=== PATIENT | female | born 1990 | race Two or more races ===

== ENCOUNTER → 2020-05-02 07:34 | Outpatient (BNVA) | payer OTHER, SELFPAY | PROVIDERS: PCP Internal Medicine | DX: Z13.89 Encounter for screening for other disorder (principal) | CPT/HCPCS: 99213 ==

== ENCOUNTER 2020-07-17 23:27 | Outpatient (REF) | payer OTHER, SELFPAY ==
[2020-07-18 00:02] LABS: IDNOW Serial# 9DD0AD1C
[2020-07-18 00:03] LABS: COVID-19 Test Negative (Negative)
== END 2020-07-17 23:28 | disposition home or self-care (01) ==
LOC: HO.LAB 23:27
PROVIDERS: Visit Provider Internal Medicine
DX: Z20.828 Contact with and (suspected) exposure to other viral communicable diseases (principal)
CPT/HCPCS: 36415; 87635

== ENCOUNTER 2021-07-21 15:13 | Emergency (ER) | payer OTHER, SELFPAY ==
[2021-07-21 16:36] VITALS: BP 127/75; PULSE 87; RESP 18; TEMP 35.9; O2SAT 100; BMI 37.8
[2021-07-21 19:57] LABS: COVID-19 Test Negative (Negative)
--- NOTE | 2021-07-21 22:07 | ED_ITS ---
HPI - General Adult General Chief complaint: General Medical Stated complaint: vomiting headache clogged ears Time Seen by Provider: 07/21/21 21:28 Source: patient Mode of arrival: ambulatory History of Present Illness HPI narrative: 31-year-old female without significant past history other than recent resolution of COVID-19 infection (she is unvaccinated), diagnosed on 07/06 and tested COVID-19 -5 days ago. Patient now presents with complaints of fever, left ear pain, rhinosinusitis symptoms such as pain and congestion as well as nausea and vomiting. Related Data Previous Rx's Medication Instructions Recorded amoxicillin 875 mg-potassium 1 tab PO Q12H 10 Days #20 tab 07/21/21 clavulanate 125 mg tablet (Augmentin) ondansetron 4 mg disintegrating 4 mg PO Q6H PRN #7 tab 07/21/21 tablet Allergies Allergy/AdvReac Type Severity Reaction Status Date / Time No Known Allergies Allergy Unverified 03/27/20 19:39 [No Known Allergies*] Review of Systems Review of Systems: Pertinent positives and negatives as stated in HPI 10 point review of systems is otherwise negative. [facility] Past Medical History Attestation statement: The following information was validated with the patient. Source: nursing notes reviewed Social History Social History Advance Directives: No Advance Directives Information Provided: Yes Patient : No Physical Exam Vital Signs: Vital Signs: Last Vital Signs Temp 96.6 F L 07/21/21 16:36 Pulse 87 07/21/21 16:36 Resp 18 07/21/21 16:36 BP 127/75 07/21/21 16:36 Pulse Ox 100 07/21/21 16:36 BMI result Body Mass Index 37.8 VITAL SIGNS: Reviewed. GENERAL: Well developed, well nourished, in no acute distress. HEAD: Normocephalic/atraumatic EYES: PERRLA, EOMI EARS: Ext canals without abnormality, LEFT:TM with noted purulence and mild bulging, RIGHT: TM non-bulging and non-erythematous NOSE: Bilateral nasal congestion boggy turbinates, pain on palpation over left maximal OROPHARYNX: no oral lesions noted, posterior pharynx clear and non-erythematous without noted tonsillar enlargement/erythema/exudates NECK: Supple, no adenopathy LUNGS: Normal breath sounds, no tachypnea. No adventitious sounds or accessory muscle use. SpO2<100> CARDIOVASCULAR: Regular rate and rhythm without noted murmurs ABDOMEN: Soft, non-tender, non-distended with bowel sounds. NEUROLOGIC: Alert and oriented x 4. Course Course Course Narrative: 31-year-old female with history and clinical presentation consistent with likely sinusitis and clinical exam demonstrates left AOM. Patient received combination analgesics, antiemetic, and initial antibiotics. Review of all investigations otherwise negative for acute findings and on re- evaluation patient is feeling somewhat better. She is otherwise discharged home without tachypnea or tachycardia and is afebrile and oxygenating well on room air. Medical Decision Making Lab Data Labs: Lab Results 07/21/21 07/21/21 07/21/21 Range/Units 19:30 22:31 22:31 Urine Color YELLOW Urine Appearance CLEAR Urine pH 7.0 (5.0-8.0) Ur Specific [place] 1.025 (1.005-1.025) Urine Protein 1+ H (NEG-TRACE) MG/DL Urine Glucose (UA) NEG (NEG) MG/DL Urine Ketones >=80 (NEG) MG/DL Urine Blood NEG (NEG) Urine Nitrite NEG (NEG) Ur Leukocyte Esterase NEG (NEG) Urine Test NEGATIVE (NEGATIVE) COVID-19 (YARELY) Negative (Negative) COVID-19 Clin Com See Note Discharge Plan Discharge Clinical Impression: Rhinosinusitis, Acute otitis media Patient Disposition: Home, Self-Care Instructions: Ear Infection (ED), Rhinosinusitis (ED), Nasal Rinse (ED) Additional Instructions: 1. Tylenol 1000 mg, orally, every 6 hours as needed for pain control. Do not exceed 4000 mg within 24 hours. 2. Ibuprofen 400 mg, orally with milk or food, every 6 hours as needed for pain control. 3. Complete the entire course of antibiotics and recommend use of probiotics. You have been provided with a prescription for antinausea medication and may use diet to prevent further diarrhea, such as bananas etcetera. 4. Follow-up with your primary care provider via telemedicine for re-evaluation in the next 2-3 days. Return to the ER for worsening symptoms. Prescriptions: New ondansetron 4 mg tablet,disintegrating 4 mg PO Q6H PRN (Reason: nausea and vomiting) Qty: 7 RF: 0 amoxicillin-pot clavulanate [Augmentin] 875-125 mg tablet 1 tab PO Q12H 10 Days Qty: 20 RF: 0 Referrals: Ubaldo Rothman MD [Primary Care Provider] - 2 days Stand Alone Forms: Work/School Release
[2021-07-21] MEDS: Acetaminophen 325 MG TABLET 975 MG PO (22:21)
[2021-07-21] MEDS: Ondansetron ODT 4 MG TAB.RAPDIS TRANSLINGU (22:21)
[2021-07-21] MEDS: Ibuprofen 400 MG TABLET PO (22:21)
[2021-07-21] MEDS: Amoxicillin/Potassium Clav 875 MG TABLET PO (22:21)
[2021-07-21 22:38] LABS: Appearance Urine CLEAR; Color Urine YELLOW; Glucose Urine UA NEG (NEG); Leukocyte Esterase Urine NEG (NEG); Nitrite Urine NEG (NEG); Specific Gravity - Urine 1.025 (1.005-1.025); UACC Culture Trigger NO; Urine Blood NEG (NEG); Urine Ketones >=80 MG/DL (NEG); Urine Protein 1+ MG/DL (NEG-TRACE)
[2021-07-21 22:41] LABS: UPreg QC Valid YES; Urine Pregnancy NEGATIVE (NEGATIVE)
[2021-07-21 22:48] LABS: Bacteria Urine 2+ /LPF; Squamous Epithelial Cell Urine 2+ /LPF
[2021-07-21 22:49] LABS: Mucus Urine 1+ /LPF
[2021-07-21 23:03] VITALS: BP 126/88; PULSE 89; RESP 16; O2SAT 98
== END 2021-07-21 23:04 | disposition home or self-care (01) ==
PROVIDERS: Emergency Provider Student in an Organized Health Care Education/Training Program; PCP Internal Medicine
DX: H66.93 Otitis media, unspecified, bilateral (principal); J32.9 Chronic sinusitis, unspecified; R11.10 Vomiting, unspecified; R51.9 Headache, unspecified; Z20.822 Contact with and (suspected) exposure to COVID-19; Z79.899 Other long term (current) drug therapy
CPT/HCPCS: 81001; 81025; 87635; 99283

== ENCOUNTER → 2021-07-22 15:58 | Outpatient (BNVA) | payer OTHER, SELFPAY | PROVIDERS: PCP Internal Medicine; Visit Provider Psychiatry & Neurology Neurology | DX: G47.33 Obstructive sleep apnea (adult) (pediatric) (principal); J32.9 Chronic sinusitis, unspecified; G43.009 Migraine without aura, not intractable, without status migrainosus | CPT/HCPCS: 99212 ==

== ENCOUNTER 2021-09-13 15:14 | Emergency (ER) | payer OTHER, SELFPAY ==
--- NOTE | ~2021-09-13 | CT_ITS ---
EXAMINATION: CT ABDOMEN AND PELVIS WITH CONTRAST CLINICAL INFORMATION: Left-sided abdominal pain COMPARISON: None TECHNIQUE: Multidetector volumetric images were obtained from the superior aspect of the liver through the pubic symphysis following administration 85 mL of Omnipaque 350 intravenous contrast. Sagittal and coronal reformatted images were obtained on the technologist's workstation. Oral contrast: No This CT examination was performed using dose optimization techniques as appropriate, variously including the following: *Automated exposure control *Adjustment of mA and/or kV according to patient size (this includes techniques or standardized protocols for targeted exams where dose is matched to indication/reason for exam; i.e. extremities or head) *Use of iterative reconstruction technique DLP: 793 mGy-cm FINDINGS: LUNG BASES: The visualized lung bases are unremarkable. LIVER, GALLBLADDER, AND BILIARY TREE: The liver is normal in size, shape, and attenuation. No focal hepatic lesion or biliary ductal dilatation is present. The gallbladder is unremarkable with no evidence of radiopaque gallstones, gallbladder wall thickening, or obvious pericholecystic inflammatory changes. PANCREAS: Unremarkable. SPLEEN: Unremarkable. ADRENAL GLANDS: Unremarkable. KIDNEYS AND URETERS: The kidneys are normal in size, shape, and attenuation. A benign Bosniak class I left renal cyst is present which needs no further imaging or follow-up. No hydronephrosis, hydroureter, or calculi seen. No perinephric stranding. BLADDER: Empty and poorly evaluated. GASTROINTESTINAL TRACT: The small and large bowel are unremarkable. The appendix is unremarkable. ABDOMINAL WALL: No significant hernia is appreciated. As a tiny periumbilical hernia seen containing only fat. LYMPH NODES: No retroperitoneal lymphadenopathy. VASCULAR: Unremarkable. PELVIC VISCERA: An anteverted uterus is present with an IUD in place. The ovaries appear normal. No free fluid is present in the pelvis. OSSEOUS STRUCTURES: Unremarkable. CT/CT abdomen pelvis w con IMPRESSION: A cause for the patient's left-sided abdominal pain has not been found. No significant abnormality is detected. Fleischner guidelines were followed.
[2021-09-13 16:00] VITALS: BP 164/81; PULSE 91; RESP 18; TEMP 36.8; O2SAT 98; BMI 37.8
--- NOTE | 2021-09-13 18:07 | ED_ITS ---
HPI - General Adult General Chief complaint: GI Bleed Stated complaint: bloody stool Time Seen by Provider: 09/13/21 17:50 Source: patient Mode of arrival: ambulatory Limitations: no limitations History of Present Illness HPI narrative: 31-year-old female here with reports of intermittent left-sided abdominal pain over the last 1 week. Patient tells me she initially had constipation and was straining to move her bowels. Three days ago she did start to for bowels and since then her bowels have been loose. She noticed some blood in her stool while she was constipated. At that time her hard stools are streaks of blood. Since having loose stools it seems to be more mixed with blood expect Monalisa after wiping she notices bleeding on the toilet paper and has some associated clots. Patient is not on any anticoagulation or aspirin. She denies any nausea, vomiting, urinary symptoms, fevers or chills. Related Data Home Medications Medication Instructions Recorded Confirmed [id number] 1 cap PO Q6H PRN 07/22/21 07/22/21 50 mg-325 mg-40 mg capsule ibuprofen 200 mg capsule 200 mg PO Q6H PRN 07/22/21 07/22/21 magnesium oxide 400 mg PO DAILY 07/22/21 07/22/21 riboflavin (vitamin B2) 400 mg 400 mg PO DAILY 07/22/21 07/22/21 tablet Previous Rx's Medication Instructions Recorded amoxicillin 875 mg-potassium 1 tab PO Q12H 10 Days #20 tab 07/21/21 clavulanate 125 mg tablet (Augmentin) ondansetron 4 mg disintegrating 4 mg PO Q6H PRN #7 tab 07/21/21 tablet Allergies Allergy/AdvReac Type Severity Reaction Status Date / Time No Known Allergies Allergy Verified 07/22/21 16:04 [No Known Allergies*] Review of Systems Review of Systems: Yes all other systems are reviewed and are negative Constitutional: Constitutional: Reports no additional constitutional complaints, Denies body ache(s), Denies chills, Denies fever(s), Denies headache(s) and Denies weakness Eyes: Eyes: Reports no additional eye complaints and Denies change in vision ENT: Reports system reviewed and no additional complaints, except as documented, Denies dizziness, Denies headache(s), Denies nasal congestion, Denies nasal discharge and Denies neck pain Cardiovascular: Cardiovascular: Reports no additional cardiovascular complaints, Denies chest pain, Denies leg edema and Denies dyspnea Respiratory: Respiratory: Reports no additional respiratory complaints, Denies cough and Denies dyspnea Gastrointestinal: Gastrointestinal: Reports no additional gastrointestinal complaints, Reports abdominal pain, Reports hematochezia, Reports constipation, Denies diarrhea, Reports loose stools, Denies nausea and Denies vomiting Genitourinary: Genitourinary: Reports no additional female genitourinary complaints and Denies urinary incontinence Musculoskeletal: Musculoskeletal: Reports no additional musculoskeletal complaints, Denies back pain, Denies arthralgias, Denies joint swelling, Denies neck pain, Denies numbness and Denies tingling Integumentary/Breasts: Skin/Breast: Reports system reviewed and no additional complaints, except as docu and Denies rash Neurologic: Reports system reviewed and no additional complaints, except as documented, Denies dizziness, Denies headache(s), Denies numbness, Denies tingling and Denies weakness PMFSH Past Medical History Attestation statement: The following information was validated with the patient. Source: old records reviewed and nursing notes reviewed Surgical History No pertinent past surgical history Family History Family History Mother HTN (hypertension) Migraine Arthritis Fibromyalgia Social History Social History Alcohol intake: never Patient Tobacco Use Status: Never used Tobacco Advance Directives: No Advance Directives Information Provided: No Patient : No Physical Exam ED Vital Signs: Vital Signs - 24 hr 09/13/21 16:00 09/13/21 18:41 09/13/21 20:22 Temperature 98.2 F 98.8 F 98.3 F Pulse Rate 91 79 86 Respiratory Rate 18 18 18 Blood Pressure 164/81 H 133/68 111/53 L Pulse Oximetry 98 98 98 BMI result Body Mass Index 37.8 Const General: cooperative, healthy appearing, comfortable and no acute distress Orientation/consciousness: patient oriented x3 Limitations: no limitations HENMT Head: Yes normal to inspection Ears: hearing grossly normal bilaterally and TM's normal bilaterally General nose exam: Normal external nose present Face and sinus: Yes normal facial exam Mouth: Normal oral and palatal mucosa present Teeth and gingiva: dentition normal Throat: Yes posterior oropharynx normal and Yes tonsils normal Eyes General: appearance normal, both eyes and all related structures Pupils: Equal, round and reactive pupils present Neck Neck: Yes normal visual inspection, Yes full ROM, Yes no lymphadenopathy and Yes no meningeal signs Chest Chest palpation & inspection: normal inspection of the chest Resp Effort & Inspection: normal respiratory effort Auscultation: clear to auscultation bilaterally Cardio Rate: regular rate Rhythm: regular rhythm Peripheral pulses: Peripheral pulses 2+ throughout GI Inspection: Yes normal to inspection Palpation (GI): Soft to palpation and Tenderness to palpation present (GI) (Left sided-no rebound or guarding ) Rectal Exam - Female: visual inspection normal, normal sphincter tone and other (Brown stool) General: Yes no CVA tenderness Back/Spine/Pelvis Back: no CVA tenderness Thoracic/Lumbar Spine: thoracic and lumbar spine normal to inspection Skin General skin exam: no rashes or lesions noted Neuro General: patient oriented x3 and no meningeal signs Cranial nerves: Yes Equal, round and reactive pupils present Extrem General: Yes normal to inspection, Yes no pedal edema and Yes no calf tenderness Course Course Course Narrative: 31 yo female here with complaints of intermittent left-sided abdominal pain with some rectal bleeding for the last week with some associated alternating diarrhea and constipation. On exam the patient has a mild tenderness left lower quadrant with no rebound or guarding. Rectal exam does not show any bleeding. Will check labs, occult stool, UA and CT 2044-labs unremarkable. Occult stool negative for blood. CT shows no acute finding. Patient has had no additional episodes here. ?hemorrhoids from the alternating constipation and diarrhea. Recommend patient follow-up with Gastroenterology. Reviewed worrisome signs and symptoms when to return to the emergency department. Comfortable discharge home. Medical Decision Making Lab Data Result diagrams: 09/13/21 18:07 09/13/21 18:07 Labs: Lab Results 09/13/21 09/13/21 09/13/21 Range/Units 18:03 18:04 18:04 WBC (4.8-10.8) X10*3/uL RBC (4.20-5.50) X10*6/uL Hgb (12.0-16.0) g/dl Hct (37.0-47.0) % MCV (80.0-98.0) fL MCH (27.0-33.0) pg MCHC (31.0-35.0) g/dl RDW (11.0-16.0) % Plt Count (160-400) X10*3/uL MPV (9.4-12.3) fL Immature Gran % (Auto) (0.0-0.4) % Neut % (Auto) (45-73) % Lymph % (Auto) (20-40) % [place] % (Auto) (2-11) % Eos % (Auto) (0-4) % Baso % (Auto) (0-2) % Lymph # (Auto) (1.2-4.9) X10*3/uL [place] # (Auto) (0.1-1.2) X10*3/uL Eos # (Auto) (0.0-0.4) X10*3/uL Baso # (Auto) (0.0-0.2) X10*3/uL Abs Immat Gran (auto) (0.00-0.03) X10*3/uL Absolute Neuts (auto) (2.0-8.3) x10*3/uL Absolute Nucleated RBC (0.0-0.012) X10*3/uL Nucleated RBC % (auto) (0.0-0.2) /100WBC Sodium (135-145) mmol/L Potassium (3.3-5.1) mmol/L Chloride (96-108) mmol/L Carbon Dioxide (22-29) mmol/L Anion Gap (12-20) BUN (9-16) mg/dL Creatinine (0.5-1.4) mg/dL Estim Creat Clear Calc Estimated GFR Random Glucose (60-115) mg/dL Calcium (8.4-10.2) mg/dL Total Bilirubin (0.0-1.0) mg/dL Direct Bilirubin (0.0-0.5) mg/dL AST (5-31) U/L ALT (0-31) U/L Alkaline Phosphatase (39-117) U/L Total Protein (6.5-8.0) g/dL Albumin (3.5-5.0) g/dL Urine Color YELLOW Urine Appearance CLEAR Urine pH 6.0 (5.0-8.0) Ur Specific [place] >= 1.030 H (1.005-1.025) Urine Protein TRACE (NEG-TRACE) MG/DL Urine Glucose (UA) NEG (NEG) MG/DL Urine Ketones 40 (NEG) MG/DL Urine Blood NEG (NEG) Urine Nitrite NEG (NEG) Ur Leukocyte Esterase NEG (NEG) Urine Test NEGATIVE (NEGATIVE) Stool Occult Blood NEGATIVE (NEGATIVE) 09/13/21 09/13/21 Range/Units 18:07 18:07 WBC 8.6 (4.8-10.8) X10*3/uL RBC 4.28 (4.20-5.50) X10*6/uL Hgb 11.3 L (12.0-16.0) g/dl Hct 35.3 L (37.0-47.0) % MCV 82.5 (80.0-98.0) fL MCH 26.4 L (27.0-33.0) pg MCHC 32.0 (31.0-35.0) g/dl RDW 14.6 (11.0-16.0) % Plt Count 372 (160-400) X10*3/uL MPV 8.8 L (9.4-12.3) fL Immature Gran % (Auto) 0.1 (0.0-0.4) % Neut % (Auto) 73.2 H (45-73) % Lymph % (Auto) 22.1 (20-40) % [place] % (Auto) 3.8 (2-11) % Eos % (Auto) 0.6 (0-4) % Baso % (Auto) 0.2 (0-2) % Lymph # (Auto) 1.9 (1.2-4.9) X10*3/uL [place] # (Auto) 0.3 (0.1-1.2) X10*3/uL Eos # (Auto) 0.1 (0.0-0.4) X10*3/uL Baso # (Auto) 0.0 (0.0-0.2) X10*3/uL Abs Immat Gran (auto) 0.01 (0.00-0.03) X10*3/uL Absolute Neuts (auto) 6.3 (2.0-8.3) x10*3/uL Absolute Nucleated RBC 0.000 (0.0-0.012) X10*3/uL Nucleated RBC % (auto) 0.0 (0.0-0.2) /100WBC Sodium 138 (135-145) mmol/L Potassium 3.8 (3.3-5.1) mmol/L Chloride 103 (96-108) mmol/L Carbon Dioxide 27 (22-29) mmol/L Anion Gap 12 (12-20) BUN 14 (9-16) mg/dL Creatinine 0.75 (0.5-1.4) mg/dL Estim Creat Clear Calc 122.5 Estimated GFR > 60 Random Glucose 89 (60-115) mg/dL Calcium 9.6 (8.4-10.2) mg/dL Total Bilirubin 0.5 (0.0-1.0) mg/dL Direct Bilirubin 0.2 (0.0-0.5) mg/dL AST 14 (5-31) U/L ALT 26 (0-31) U/L Alkaline Phosphatase 89 (39-117) U/L Total Protein 7.7 (6.5-8.0) g/dL Albumin 4.6 (3.5-5.0) g/dL Urine Color Urine Appearance Urine pH (5.0-8.0) Ur Specific [place] (1.005-1.025) Urine Protein (NEG-TRACE) MG/DL Urine Glucose (UA) (NEG) MG/DL Urine Ketones (NEG) MG/DL Urine Blood (NEG) Urine Nitrite (NEG) Ur Leukocyte Esterase (NEG) Urine Test (NEGATIVE) Stool Occult Blood (NEGATIVE) Imaging Data CT scan - abdomen: Attestation: I personally reviewed and interpreted this imaging study as follows: Radiologist's impression: FINDINGS: LUNG BASES: The visualized lung bases are unremarkable.? LIVER, GALLBLADDER, AND BILIARY TREE: The liver is normal in size, shape, and attenuation. No focal hepatic lesion or biliary ductal dilatation is present. The gallbladder is unremarkable with no evidence of radiopaque gallstones, gallbladder wall thickening, or obvious pericholecystic inflammatory changes.? PANCREAS: Unremarkable.? SPLEEN: Unremarkable.? ADRENAL GLANDS: Unremarkable.? KIDNEYS AND URETERS: The kidneys are normal in size, shape, and attenuation. A benign Bosniak class I left renal cyst is present which needs no further imaging or follow-up. No hydronephrosis, hydroureter, or calculi seen. No perinephric stranding. ? BLADDER: Empty and poorly evaluated.? GASTROINTESTINAL TRACT: The small and large bowel are unremarkable. The appendix is unremarkable.? ABDOMINAL WALL: No significant hernia is appreciated. As a tiny periumbilical hernia seen containing only fat. LYMPH NODES: No retroperitoneal lymphadenopathy. VASCULAR: Unremarkable. PELVIC VISCERA: An anteverted uterus is present with an IUD in place. The ovaries appear normal. No free fluid is present in the pelvis. OSSEOUS STRUCTURES: Unremarkable.? CT/CT abdomen pelvis w con IMPRESSION: A cause for the patient's left-sided abdominal pain has not been found. No significant abnormality is detected.? ? Fleischner guidelines were followed. Discharge Plan Discharge Clinical Impression: Abdominal pain, Rectal bleeding Patient Disposition: Home, Self-Care Instructions: Rectal Bleeding (ED), Abdominal Pain (ED) Additional Instructions: Your blood work looks stable. Her CT scan shows no acute finding. It is recommend that you follow-up with Gastroenterology to have an outpatient colonoscopy. Return for worsening bleeding, severe pain, fevers, feeling lightheaded or dizzy Avoid constipation. Increase fluids and fiber in diet Prescriptions: No Action ondansetron 4 mg tablet,disintegrating 4 mg PO Q6H PRN (Reason: nausea and vomiting) Qty: 7 0RF amoxicillin-pot clavulanate [Augmentin] 875-125 mg tablet 1 tab PO Q12H 10 Days Qty: 20 0RF zitmmoiiny-wcjjeuxsufkvl-dioe 50-325-40 mg capsule 1 cap PO Q6H PRN0RF ibuprofen 200 mg capsule 200 mg PO Q6H PRN0RF magnesium oxide 400 mg magnesium tablet 400 mg PO DAILY 0RF riboflavin (vitamin B2) 400 mg tablet 400 mg PO DAILY 0RF Referrals: Howard Montalvo [Physician] - 2 days
[2021-09-13 18:13] LABS: MANUAL DIFF FLAG NO
[2021-09-13 18:16] LABS: Basophils Percent Auto 0.2 % (0-2); Eosinophils Absolute Auto 0.1 X10*3/uL (0.0-0.4); Eosinophils Percent Auto 0.6 % (0-4); Hematocrit 35.3 % (37.0-47.0); Hemoglobin 11.3 g/dl (12.0-16.0); Imm Gran Abs Auto 0.01 X10*3/uL (0.00-0.03); Imm Gran Pct Auto 0.1 % (0.0-0.4); Lymphocytes Absolute Auto 1.9 X10*3/uL (1.2-4.9); Lymphocytes Percent Auto 22.1 % (20-40); Mean Corpuscular Hemoglobin 26.4 pg (27.0-33.0); Mean Corpuscular Volume 82.5 fL (80.0-98.0); Mean Platelet Volume 8.8 fL (9.4-12.3); Monocytes Absolute Auto 0.3 X10*3/uL (0.1-1.2); Monocytes Percent Auto 3.8 % (2-11); Neutrophils Absolute Auto 6.3 x10*3/uL (2.0-8.3); Neutrophils Percent Auto 73.2 % (45-73); Platelet Count 372 X10*3/uL (160-400); Red Blood Count 4.28 X10*6/uL (4.20-5.50); Red Cell Distribution Width 14.6 % (11.0-16.0); White Blood Count 8.6 X10*3/uL (4.8-10.8)
[2021-09-13 18:18] LABS: OBS Int Ctl Valid YES; OBS1 NEGATIVE (NEGATIVE)
[2021-09-13 18:20] LABS: UPreg QC Valid YES; Urine Pregnancy NEGATIVE (NEGATIVE)
[2021-09-13 18:23] LABS: Appearance Urine CLEAR; Color Urine YELLOW; Glucose Urine UA NEG (NEG); Leukocyte Esterase Urine NEG (NEG); Nitrite Urine NEG (NEG); Specific Gravity - Urine >= 1.030 (1.005-1.025); Urine Blood NEG (NEG); Urine Ketones 40 MG/DL (NEG); Urine Protein TRACE MG/DL (NEG-TRACE)
[2021-09-13 18:37] LABS: Alanine Aminotransferase 26 U/L (0-31); Albumin Level 4.6 g/dL (3.5-5.0); Alkaline Phosphatase 89 U/L (39-117); Anion Gap 12 (12-20); Aspartate Amino Transferase 14 U/L (5-31); Bilirubin Direct 0.2 mg/dL (0.0-0.5); Bilirubin Total 0.5 mg/dL (0.0-1.0); Blood Urea Nitrogen 14 mg/dL (9-16); Calcium 9.6 mg/dL (8.4-10.2); Carbon Dioxide 27 mmol/L (22-29); Chloride 103 mmol/L (96-108); Creatinine Clr Calc Pharmacy 122.5; Estimated Glomerular Filt Rate > 60; Glucose Random 89 mg/dL (60-115); Potassium 3.8 mmol/L (3.3-5.1); Sodium 138 mmol/L (135-145); Total Protein 7.7 g/dL (6.5-8.0)
[2021-09-13 18:41] VITALS: BP 133/68; PULSE 79; RESP 18; TEMP 37.1; O2SAT 98
[2021-09-13] MEDS: iohexoL 350 MG/ML 100 ML INFUS..BTL IV (18:54)
[2021-09-13 20:22] VITALS: BP 111/53; PULSE 86; RESP 18; TEMP 36.8; O2SAT 98
--- NOTE | 2021-09-13 20:55 | PC.NURSE ---
I assumed nursing care of Blanca at 1900. She has been resting in bed since that time, napping and awaiting MD dispo. She states she has been having intermittent abdominal pain and bloody stool, prompting her to come to ED for evaluation. She describes the abdominal pain as waxing and waning. SHe has been discharged at this time. SHe verbalied an understanding of all DC orders and ambulated out of the ED independently and with steady gait.
== END 2021-09-13 20:54 | disposition home or self-care (01) ==
PROVIDERS: Nurse Practitioner Family; Emergency Provider Emergency Medicine; PCP Internal Medicine
DX: K62.5 Hemorrhage of anus and rectum (principal); R10.9 Unspecified abdominal pain; Z79.899 Other long term (current) drug therapy
CPT/HCPCS: 36415; 74177; 80048; 80076; 81003; 81025; 82272; 85025; 99284; Q9967

== ENCOUNTER → 2022-04-28 09:14 | Outpatient (RCR) | payer OTHER, SELFPAY ==
[2020-05-20 07:36] LABS: COVID-19 Test Negative (Negative)
[2020-06-04 06:48] LABS: COVID-19 Test Negative (Negative)
[2020-06-11 06:56] LABS: COVID-19 Test Negative (Negative)
== END | disposition home or self-care (01) ==
LOC: HO.EMPCOV 05-20 07:14
PROVIDERS: Visit Provider Internal Medicine
DX: Z20.828 Contact with and (suspected) exposure to other viral communicable diseases (principal)
CPT/HCPCS: 87635; C9803

== ENCOUNTER → 2022-09-14 13:51 | Outpatient (BNVA) | payer OTHER, SELFPAY | PROVIDERS: PCP Internal Medicine; Visit Provider Physician Assistant Medical | DX: Z13.89 Encounter for screening for other disorder (principal) | CPT/HCPCS: 99203 ==